=== PATIENT | female | born 2005 | race Caucasian/White ===

== ENCOUNTER 2024-07-30 04:41 | Emergency (ER) | payer MEDICAID ==
[~2024-07-30] VITALS: Ht 162.6 cm; Wt 69.0 kg
[2024-07-30] MEDS: PREDNISONE 20MG TABLET PO STA (05:28)
[2024-07-30] MEDS: ACETAMINOPHEN 325MG TABLET PO ONE (05:30)
[2024-07-30 05:53] LABS: BASOPHILS % 0.2 % (0.0-2.0); EOSINOPHILS % 2.6 % (0.0-5.0); HEMATOCRIT. 43.8 % (36.0-48.0); HEMOGLOBIN. 14.7 g/dL (12.0-16.0); LYMPHOCYTES % 11.4 % (20.0-50.0); MEAN CORPUSCULAR HEMOGLOBIN 30.4 pg (28.0-32.0); MEAN CORPUSCULAR HGB CONC 33.6 g/dL (31.0-37.0); MEAN CORPUSCULAR VOLUME 90.5 fL (81.0-99.0); MEAN PLATELET VOLUME 8.2 fl (7.4-10.4); MONOCYTES % 4.9 % (2.0-8.0); NEUTROPHILS % 80.9 % (40.0-76.0); PLATELET 271 x1000/uL (130-400); RED BLOOD CELL COUNT 4.84 mill/uL (4.2-5.4); RED CELL DISTRIBUTION WIDTH 12.5 % (11.6-14.6); WHITE BLOOD COUNT 15.8 x1000/uL (4.5-11.0)
[2024-07-30 05:54] LABS: CHLORIDE 109 mEq/L (98-107); POTASSIUM 3.7 mEq/L (3.5-5.1); SODIUM 140 mEq/L (136-145)
[2024-07-30 05:55] LABS: CALCIUM 9.8 mg/dL (8.7-10.4); CARBON DIOXIDE 25 mEq/L (21-32)
[2024-07-30 06:00] LABS: CREATININE 0.8 mg/dL (0.6-1.0); GLUCOSE 90 mg/dL (70-105); UREA NITROGEN BLOOD 10 mg/dL (9-23)
[2024-07-30] MEDS: IPRATROPIUM BROMIDE (0.02%) 0.5MG/2.5ML NEB HHN STA (06:04)
[2024-07-30] MEDS: ALBUTEROL (0.083%) 2.5MG/3ML NEB HHN STA (06:05)
[2024-07-30 06:06] VITALS: PULSE 86; RESP 22; O2SAT 99
[2024-07-30] MEDS ORDERED: ALBU90AE INH (06:42)
[2024-07-30] MEDS ORDERED: P50 PO (06:42)
[2024-07-30 06:50] VITALS: BP 125/77; PULSE 86; RESP 22; TEMP 37.11408; O2SAT 99
[2024-07-30 07:02] LABS: TROPONIN I HIGH SENSITIVITY < 4 ng/L (3.0-34)
== END 2024-07-30 06:45 | disposition home or self-care (01) ==
LOC: ER 04:41
DX: J45.909 Unspecified asthma, uncomplicated (principal)
CPT/HCPCS: 80048; 85025; 84484; 36415; 94640; 93005; 99284; J7512; Z7610 ×2